=== PATIENT | female | born 2000 | race Caucasian/White ===

== ENCOUNTER 2023-12-07 16:09 | Emergency (ER) | payer OTHER, SELFPAY ==
[2023-12-07] VITALS (10 sets, daily range): BP systolic 135–162; BP diastolic 77–91; PULSE 89–103; RESP 20; TEMP 36.7; O2SAT 97–99; BMI 39.1
[2023-12-07 17:33] LABS: Adenovirus Not Detected (Not Detect); B. parapertussis Not Detected (Not Detecte); Bordetella pertussis Not Detected (Not Detect); Chlamydophila pneumoniae Not Detected (Not Detect); Coronavirus 229E Not Detected (Not Detect); Coronavirus HKU1 Not Detected (Not Detect); Coronavirus NL 63 Not Detected (Not Detect); Coronavirus OC43 Not Detected (Not Detect); Human Metapneumovirus Not Detected (Not Detect); Human Rhinovirus/Enterovirus Not Detected (Not Detect); Influenza A Not Detected (Not Detect); Influenza B Not Detected (Not Detect); Mycoplasma pneumoniae Not Detected (Not Detect); Parainfluenza Virus 1 Not Detected (Not Detect); Parainfluenza Virus 2 Not Detected (Not Detect); Parainfluenza Virus 3 Not Detected (Not Detect); Parainfluenza Virus 4 Not Detected (Not Detect); Respiratory Syncytial Virus Not Detected (Not Detect); SARS- CoV-2 Not Detected (Not Detecte)
--- NOTE | 2023-12-07 18:54 | ED.URI ---
HPI - URI/Sore Throat <Marisel Grubbs PA-C - Last Filed: 12/07/23 19:00> General Chief Complaint: Upper Respiratory Symptoms Stated Complaint: Vomiting, Sinus Issues, Cough Time Seen by Provider: 12/07/23 17:57 Source: patient Mode of arrival: Family Vehicle History of Present Illness HPI Narrative: 23-year-old female presents to the ED with 5 days of upper respiratory symptoms. Patient complains of cough, nasal congestion, sinus congestion, nausea, fatigue, subjective fever, diarrhea. Denies chest pain, shortness of breath. Patient called the nurse hotline and she was sent to the ED. Related Data Previous Rx's Medication Instructions Recorded benzonatate 200 mg capsule 200 mg PO TID PRN cough #30 caps 12/07/23 Review of Systems <Marisel Grubbs PA-C - Last Filed: 12/07/23 19:00> Constitutional Constitutional: Denies chills, Reports fatigue, Reports fever(s), Denies frequent falls, Denies lethargy and Denies weakness Eyes Eyes: Denies change in vision, Denies eye discharge, Denies irritation and Denies loss of vision ENT Ears, Nose, Mouth, and Throat: Denies change in voice, Denies dizziness, Reports nasal congestion, Denies neck pain, Denies sore throat and Denies throat swelling Cardiovascular Cardiovascular: Denies chest pain, Denies irregular heart rhythm, Denies lightheadedness, Denies palpitations, Denies dyspnea, Denies dyspnea on exertion and Denies orthopnea Respiratory Respiratory: Denies cough, Denies dyspnea, Denies dyspnea on exertion and Denies wheezing Gastrointestinal Gastrointestinal: Denies abdominal pain, Denies change in bowel habits, Reports diarrhea, Reports nausea and Denies vomiting Musculoskeletal Musculoskeletal: Denies neck pain and Denies numbness Integumentary/Breasts Skin/Breast: Denies pruritus, Denies erythema, Denies rash and Denies wounds Neurologic Neurologic: Denies behavioral changes, Denies confusion, Denies dizziness, Denies frequent falls, Denies loss of vision, Denies numbness and Denies weakness Psychiatric Psychiatric: Denies anxiety, Denies behavioral changes, Denies confusion, Denies depression, Denies homicidal ideation and Denies suicidal ideation Endocrine Endocrine: Reports fatigue, Denies flushing and Denies palpitations Hematologic/Lymphatic Hematologic/Lymphatic: Denies easy bruising Allergic/Immunologic Allergic/Immunologic: Denies urticaria, Denies throat swelling and Denies wheezing Exam <Marisel Grubbs PA-C - Last Filed: 12/07/23 19:00> Narrative Exam Narrative: Const General:?cooperative, healthy appearing and comfortable [facility] Head:?normal to inspection Ears:?hearing grossly normal bilaterally Nose:?external nose normal Face and sinus:?normal facial exam and sinuses nontender Mouth:?oral mucosae normal Throat:?posterior oropharynx normal Eyes General:?appearance normal, both eyes and all related structures Neck Neck:?normal visual inspection and no lymphadenopathy noted Resp Effort & Inspection:?normal respiratory effort Auscultation:?clear to auscultation bilaterally Cardio Rate:?regular rate Rhythm:?regular rhythm Neuro General:?patient alert, patient awake and patient oriented x3 Initial Vital Signs Initial Vital Signs: Vital Signs Temperature 98.1 F 12/07/23 16:24 Pulse Rate 99 H 12/07/23 16:24 Respiratory Rate 20 12/07/23 16:24 Blood Pressure 162/91 H 12/07/23 16:24 Pulse Oximetry 97 12/07/23 16:24 Oxygen Delivery Method Room Air 12/07/23 16:24 <Antoni Silveira DO - Last Filed: 12/07/23 19:20> Initial Vital Signs Initial Vital Signs: Vital Signs Temperature 98.1 F 12/07/23 16:24 Pulse Rate 99 H 12/07/23 16:24 Respiratory Rate 20 12/07/23 16:24 Blood Pressure 162/91 H 12/07/23 16:24 Pulse Oximetry 97 12/07/23 16:24 Oxygen Delivery Method Room Air 12/07/23 16:24 Course <Marisel Grubbs PA-C - Last Filed: 12/07/23 19:00> Orders Ordered: ED Orders 12/07/23 16:34 Respiratory Panel (Film Array) Stat Vital Signs Vital signs: Vital Signs - 8 hr 12/07/23 16:24 12/07/23 17:08 12/07/23 17:09 Temperature 98.1 F Pulse Rate 99 H 95 H Respiratory Rate 20 Blood Pressure 162/91 H 140/78 Pulse Oximetry 97 98 Oxygen Delivery Method Room Air 12/07/23 17:09 12/07/23 17:30 12/07/23 17:31 Temperature Pulse Rate 89 89 Respiratory Rate Blood Pressure 139/84 Pulse Oximetry 97 98 Oxygen Delivery Method Room Air 12/07/23 17:31 12/07/23 18:00 12/07/23 18:00 Temperature Pulse Rate 95 H 89 Respiratory Rate Blood Pressure 145/80 H Pulse Oximetry 98 98 Oxygen Delivery Method Room Air 12/07/23 18:27 12/07/23 18:27 12/07/23 18:30 Temperature Pulse Rate 91 H 103 H Respiratory Rate Blood Pressure 153/80 H Pulse Oximetry 97 97 Oxygen Delivery Method 12/07/23 18:30 12/07/23 19:00 12/07/23 19:01 Temperature Pulse Rate 102 H 91 H Respiratory Rate Blood Pressure 135/77 Pulse Oximetry 99 98 Oxygen Delivery Method Room Air 12/07/23 19:01 Temperature Pulse Rate Respiratory Rate Blood Pressure 149/83 H Pulse Oximetry Oxygen Delivery Method <Antoni Silveira, DO - Last Filed: 12/07/23 19:20> Orders Ordered: ED Orders 12/07/23 16:34 Respiratory Panel (Film Array) Stat Vital Signs Vital signs: Vital Signs - 8 hr 12/07/23 16:24 12/07/23 17:08 12/07/23 17:09 Temperature 98.1 F Pulse Rate 99 H 95 H Respiratory Rate 20 Blood Pressure 162/91 H 140/78 Pulse Oximetry 97 98 Oxygen Delivery Method Room Air 12/07/23 17:09 12/07/23 17:30 12/07/23 17:31 Temperature Pulse Rate 89 89 Respiratory Rate Blood Pressure 139/84 Pulse Oximetry 97 98 Oxygen Delivery Method Room Air 12/07/23 17:31 12/07/23 18:00 12/07/23 18:00 Temperature Pulse Rate 95 H 89 Respiratory Rate Blood Pressure 145/80 H Pulse Oximetry 98 98 Oxygen Delivery Method Room Air 12/07/23 18:27 12/07/23 18:27 12/07/23 18:30 Temperature Pulse Rate 91 H 103 H Respiratory Rate Blood Pressure 153/80 H Pulse Oximetry 97 97 Oxygen Delivery Method 12/07/23 18:30 12/07/23 19:00 12/07/23 19:01 Temperature Pulse Rate 102 H 91 H Respiratory Rate Blood Pressure 135/77 Pulse Oximetry 99 98 Oxygen Delivery Method Room Air 12/07/23 19:01 Temperature Pulse Rate Respiratory Rate Blood Pressure 149/83 H Pulse Oximetry Oxygen Delivery Method MDM - URI/Sore Throat <Marisel Grubbs PA-C - Last Filed: 12/07/23 19:00> Lab Data Labs: Lab Results 12/07/23 Range/Units 16:34 Chlamy pneumoniae PCR Not detected (Not Detect) Adenovirus (PCR) Not detected (Not Detect) B.parapertussis DNA PCR Not detected (Not Detecte) Coronavirus OC43 (PCR) Not detected (Not Detect) Coronavirus HKU1 (PCR) Not detected (Not Detect) Coronavirus 229E (PCR) Not detected (Not Detect) SARS-CoV-2 (PCR) Not detected (Not Detecte) Coronavirus NL63 (PCR) Not detected (Not Detect) Human Metapneumovir PCR Not detected (Not Detect) Influenza Type A (PCR) Not detected (Not Detect) Influenza Type B (PCR) Not detected (Not Detect) M. pneumoniae (PCR) Not detected (Not Detect) Parainfluenza 1 (PCR) Not detected (Not Detect) Parainfluenza 2 (PCR) Not detected (Not Detect) Parainfluenza 3 (PCR) Not detected (Not Detect) Parainfluenza 4 (PCR) Not detected (Not Detect) RSV (PCR) Not detected (Not Detect) Entero/Rhino (PCR) Not detected (Not Detect) MDM Narrative Medical decision making narrative: 23-year-old female presents to the ED with 5 days of upper respiratory symptoms. Physical exam is reassuring. Prescribed Tessalon Perles. Recommend Flonase, saline spray, Sudafed, other [id number] cough and cold medications. Recommend Tylenol, ibuprofen for aches and pains. ED return precautions were discussed with patient. Patient verbalized understanding. Medical records reviewed: Yes <Antoni Silveira DO - Last Filed: 12/07/23 19:20> Lab Data Labs: Lab Results 12/07/23 Range/Units 16:34 Chlamy pneumoniae PCR Not detected (Not Detect) Adenovirus (PCR) Not detected (Not Detect) B.parapertussis DNA PCR Not detected (Not Detecte) Coronavirus OC43 (PCR) Not detected (Not Detect) Coronavirus HKU1 (PCR) Not detected (Not Detect) Coronavirus 229E (PCR) Not detected (Not Detect) SARS-CoV-2 (PCR) Not detected (Not Detecte) Coronavirus NL63 (PCR) Not detected (Not Detect) Human Metapneumovir PCR Not detected (Not Detect) Influenza Type A (PCR) Not detected (Not Detect) Influenza Type B (PCR) Not detected (Not Detect) M. pneumoniae (PCR) Not detected (Not Detect) Parainfluenza 1 (PCR) Not detected (Not Detect) Parainfluenza 2 (PCR) Not detected (Not Detect) Parainfluenza 3 (PCR) Not detected (Not Detect) Parainfluenza 4 (PCR) Not detected (Not Detect) RSV (PCR) Not detected (Not Detect) Entero/Rhino (PCR) Not detected (Not Detect) Discharge Plan Departure Patient Disposition: Home Clinical Impression: Upper respiratory infection Instructions: DI for Viral Upper Respiratory Infection -- Adult Activity Restrictions/Additional Instructions: You were evaluated in the ED today for upper respiratory infection symptoms. Your symptoms are most consistent with a viral upper respiratory infection. You are being prescribed Tessalon Perles for cough. You may also use Flonase which is dzdn-uhv-wmixzys, and is a nasal spray that will help with nasal congestion. You may also take Sudafed and other ktaw-[id number]-[id number] medications for congestion. Please take Tylenol, ibuprofen for fever, aches and pains. Please follow-up with your PCP as soon as possible. Return to the ED if you have worsening symptoms, persistent vomiting, chest pain, shortness of breath. Prescriptions: New benzonatate 200 mg capsule 200 mg PO TID PRN (Reason: cough) Qty: 30 0RF Stand Alone Forms: Patient Portal/API, Work Release Note ED Sign-out <Antoni Silveira, DO - Last Filed: 12/07/23 19:20> Cosign ED Attending Cosignature Attestation: Dr Silveira Co-Sign Statement: I was available for consultation during this patient's emergency department visit. This chart is signed by myself for administrative purposes only. I did not have direct contact with this patient during this visit. They were seen independently by the APC.
== END 2023-12-07 19:13 | disposition home or self-care (01) ==
PROVIDERS: Emergency Medicine; Emergency Provider Student in an Organized Health Care Education/Training Program
DX: J06.9 Acute upper respiratory infection, unspecified (principal); Z20.822 Contact with and (suspected) exposure to COVID-19
CPT/HCPCS: 87633; 99282